=== PATIENT | male | born 1940 | race Caucasian/White ===

== ENCOUNTER 2017-01-20 07:31 | Outpatient (CLI) | payer MEDICARE, OTHER ==
--- NOTE | 2017-01-20 13:54 | NM ---
HIDA SCAN: Date: 01/20/17 INDICATION: Cholelithiasis with concern for possible cholecystitis. RADIOPHARMACEUTICAL: 4.9 mCi technetium-99m mebrofenin IV was utilized. FINDINGS: The gallbladder is demonstrated by the 10 minute clifford. There is bowel activity noted at the 30 minute time clifford. The gallbladder ejection fraction is 71% utilizing 8 oz of Boost. IMPRESSION: Normal HIDA scan. POS: [facility]
== END 2017-01-20 07:32 | disposition home or self-care (01) ==
LOC: NM 07:31
PROVIDERS: ATTEND Surgery
DX: K80.20 Calculus of gallbladder without cholecystitis without obstruction (principal)
CPT/HCPCS: 78227; A9537

== ENCOUNTER 2017-01-31 09:58 | Day surgery (SDC) | payer MEDICARE, OTHER ==
[2017-01-30 11:02] VITALS: BMI 29.2
[2017-01-31] MEDS ORDERED: CEFAZOLIN/Water 2 GM/20 ML SYRINGE ONE (10:47)
[2017-01-31 10:57] LABS: #Eosinphils 0.1 thou/uL (0.0-0.7); #Lymphocytes 0.7 thou/uL (1.20-3.40); #Monocytes 0.5 thou/uL (0.11-0.59); #Neutrophils 4.7 thou/uL (1.40-6.50); %Basophils 0.3 % (0.0-1.0); %Eosinophils 1.8 % (0.0-10.0); %Lymphocytes 11.1 % (21.0-51.0); %Monocytes 8.2 % (0.0-10.0); Hematocrit 30.7 % (42.0-52.0); Mean Platelet Volume 5.9 fL (7.4-10.4); Red Blood Cell (RBC) Count 3.46 mill/uL (4.70-6.10); White Blood Cell (WBC) Count 5.9 thou/uL (4.8-10.8)
[2017-01-31 11:15] LABS: ALT (SGPT) 15 U/L (8-55); AST (SGOT) 20 U/L (5-34); Alkaline Phosphatase 62 U/L (40-150); Anion Gap 12 mmol/L (10-20); BUN (Urea Nitrogen) 13 mg/dL (8.4-25.7); Bilirubin, Total 0.3 mg/dL (0.2-1.2); Calc. Creatinine Clearance 67 mL/min (70-130); Calcium 9.3 mg/dL (7.8-10.44); Carbon Dioxide 26 mmol/L (23-31); Chloride 105 mmol/L (98-107); Estimated GFR-MDRD 71; Globulin 2.9 g/dL (2.4-3.5); Protein, Total 6.8 g/dL (5.8-8.1)
[2017-01-31] MEDS ORDERED: Bupivacaine 0.25% HCL 30 ML VIAL ONE (11:42)
[2017-01-31] MEDS ORDERED: Lidocaine 2% w/Epinephrine 1:200K 20 ML VIAL ONE (11:42)
[2017-01-31] MEDS ORDERED: Fentanyl 250 MCG/5 ML VIAL ONE (11:43)
[2017-01-31] MEDS ORDERED: Glycopyrrolate 0.2 MG/ML 5 ML SYRINGE ONE (15:05)
[2017-01-31] MEDS ORDERED: Ondansetron HCl/PF 4 MG/2 ML Vial ONE (15:05)
[2017-01-31] MEDS ORDERED: Ketorolac Tromethamine 30 MG/ML VIAL ONE (15:05)
[2017-01-31] MEDS ORDERED: diphenhydrAMINE 50 MG/ML VIAL ONE (15:05)
[2017-01-31] MEDS ORDERED: Propofol 200 MG/20 ML VIAL ONE (15:05)
[2017-01-31] MEDS ORDERED: ePHEDrine/0.9% NaCl/PF SYRINGE 50 mg/10 ml ONE (15:05)
[2017-01-31] MEDS ORDERED: Lidocaine 1% PF 5 ML VIAL ONE (15:05)
[2017-01-31] MEDS ORDERED: PHENYLEPHRINE-NS 100 MCG/ML 10 ML SYRINGE ONE (15:05)
[2017-01-31] MEDS ORDERED: traMADol HCl 50 MG TAB ONE (16:48)
--- NOTE | 2017-02-05 13:42 | PDOC.OP ---
Operative Note - Operative Note Operative Note: PROCEDURE: Laparoscopic cholecystectomy and excision of large lipoma from the left shoulder SURGEON: Ellyn Soto M.D. DATE OF PROCEDURE: 01/31/2017 PREOPERATIVE DIAGNOSIS: Cholelithiasis and cholecystitis, large lipoma left shoulder POSTOPERATIVE DIAGNOSIS: Cholelithiasis and cholecystitis, large lipoma left shoulder HISTORY: Patient is a 76-year-old man with persistent episodes of epigastric discomfort and nausea. He has gallbladder sludge and has decided to proceed with laparoscopic cholecystectomy for symptomatic relief. He also has a large subcutaneous mass on his left shoulder and upper arm which is been present for many decades but recently has started to bother him more. On examination and ultrasound this has the appearance of a lipoma. FINDINGS: Multiple adhesions between the omentum and the anterior abdominal wall in the mid abdomen and bilateral lower quadrants with a clear space able to be developed in the right upper quadrant. Chronically distended gallbladder with some fibrosis of the neck consistent with chronic cholecystitis. Well- demarcated encapsulated lipoma left shoulder measuring 13 x 10 x 4 cm. PROCEDURE IN DETAIL: After informed consent was obtained and appropriate preoperative antibiotics were administered, the patient was taken to the operating room and placed in the supine position and general endotracheal anesthesia was administered. The stomach was decompressed with an OG tube and the abdomen was prepped and draped in standard sterile fashion. Local anesthesia was infused to the skin and subcutaneous tissues at the umbilical level. A transverse skin incision was made. The fascia was elevated and a Veress needle was placed into the abdominal cavity without difficulty. Opening pressure was less than 5 and carbon dioxide gas easily insufflated to an intra- abdominal pressure of 15, which the patient tolerated well. The Veress needle was withdrawn and a Percy port advanced under direct vision. There is no evidence of Veress needle or of trocar injury but the trocar was found to be under the omentum. This was well away from the transverse colon and any loops of intestine, and no adhesions were seen involving the bowel loops. Only omentum appeared to be adherent to the anterior abdominal wall.. The port was drawn back into the space between the omentum and anterior abdominal wall and a space was created by bluntly sweeping the scope within this area entering a clear portion and the right upper quadrant. The right subcostal trocar was placed under direct laparoscopic vision as was the right lateral trocar and the camera moved to the right upper quadrant location. The dissecting port was then used to mobilize the omentum off the anterior abdominal wall until the trocar at the umbilical location was completely free of adhesions. The omental adhesions were easily taken down through the avascular plane without any significant blood loss and there were no other involved structures such as small bowel or colon. The upper abdomen was relatively clear of adhesions but there were extensive adhesions to the mid abdomen and bilateral lower quadrants which were not taken down. The abdominal cavity was carefully examined. There was no evidence of Veress needle or of trocar injury. Local anesthesia was infused to the skin and subcutaneous tissues at the epigastric site and the remaining trocar placed under direct vision of the laparoscope. The fundus of the gallbladder was grasped and retracted superiorly. The infundibulum was grasped and retracted laterally. The serosa was stripped inferiorly at the level of the neck of the gallbladder exposing the cystic duct and artery which were traced clearly to their insertion in the gallbladder. Critical view of safety was obtained and the cystic duct and artery were clipped and divided between clips. The gallbladder was then dissected free of the gallbladder bed using hook electrocautery. Prior to complete removal of the gallbladder from the gallbladder bed, the area of the cystic duct and artery stumps was examined. The clips were in good position completely across these structures and there was no bleeding and no leakage of bile. The gallbladder was then placed into an EndoCatch bag and drawn out through the epigastric incision. The epigastric trocar was replaced and the operative site easily irrigated to clear. There was no significant bleeding or spillage of bile. The epigastric trocar was removed and the fascia closed under direct laparoscopic vision with a 0 Vicryl suture on a GraNee needle in a [id number] manner with excellent technical result. The right upper quadrant and right lateral abdominal trocars were removed and hemostasis verified. Carbon dioxide gas was allowed to desufflate through the umbilical trocar which was then removed. The skin incisions were closed with 4-0 subcuticular Monocryl sutures and Dermabond dressings were placed. Attention was then turned to excision of the left shoulder lipoma. The patient was repositioned in the right lateral decubitus position with appropriate padding of the extremities and the left shoulder and upper arm prepped and draped in standard sterile fashion. Local anesthesia was infused circumferentially for a field block and an elliptical incision made including most of the redundant skin overlying the mass. Dissection was carried down through the subcutaneous tissues until a well encapsulated fatty mass was encountered. This was dissected free circumferentially and excised along with the overlying skin. Hemostasis is obtained using Bovie electrocautery and the tissue defect examined. There was very little undermining due to the removal of the overlying redundant skin and it was felt that the wound could be closed primarily rather than placing a drain. The field block Vicryl suture was obtained and the subcutaneous tissues reapproximated with a running lock suture. The skin was then closed with a running subcuticular Monocryl suture with an excellent technical result. Dermabond dressings were applied and a pressure dressing applied to the left upper arm and shoulder. The patient was extubated and taken to the recovery room in good condition. There were no complications. ESTIMATED BLOOD LOSS: Minimal. SPECIMEN : Gallbladder and contents, left shoulder lipoma.
--- NOTE | 2017-02-15 13:29 | EKG ---
Test Reason : PREOP Blood Pressure : / mmHG Vent. Rate : 061 BPM Atrial Rate : 061 BPM P-R Int : 262 ms QRS Dur : 094 ms QT Int : 422 ms P-R-T Axes : 068 -18 059 degrees QTc Int : 424 ms Sinus rhythm with 1st degree A-V block Anteroseptal infarct (cited on or before 26-APR-2014) Abnormal ECG When compared with ECG of 26-APR-2014 11:23, Nonspecific T wave abnormality, improved in Lateral leads Confirmed by BETI LEWIS MD ([id number]) on 02/15/2017 1:29:39 PM Referred By: LUZ Confirmed By:BETI LEWIS MD
== END 2017-01-31 18:07 | disposition home or self-care (01) ==
LOC: SDC 09:58
PROVIDERS: ATTEND Surgery
PROC: 0FT44ZZ Resection of Gallbladder, Percutaneous Endoscopic Approach (ICD-10-PCS; principal; 2017-01-31)
PROC: 0JBF0ZZ Excision of Left Upper Arm Subcutaneous Tissue and Fascia, Open Approach (ICD-10-PCS; 2017-01-31)
DX: K81.1 Chronic cholecystitis (principal); D17.22 Benign lipomatous neoplasm of skin and subcutaneous tissue of left arm; E11.9 Type 2 diabetes mellitus without complications; Z79.84 Long term (current) use of oral hypoglycemic drugs; Z79.899 Other long term (current) drug therapy; Z90.49 Acquired absence of other specified parts of digestive tract; Z98.890 Other specified postprocedural states; Z86.73 Personal history of transient ischemic attack (TIA), and cerebral infarction without residual deficits; Z85.828 Personal history of other malignant neoplasm of skin; Z87.891 Personal history of nicotine dependence
CPT/HCPCS: 36415; 80053; 85025; 88304; 93005; 93010; J0131; J1200; J1885; J2001; J2405; J2704; J3010; S0020

== ENCOUNTER 2017-07-28 09:25 | Outpatient (CLI) | payer MEDICARE, OTHER ==
[2017-07-28] MEDS ORDERED: Sodium Chloride 0.9% (PF) 10 ML VIAL ONE (10:00)
[2017-07-28] MEDS ORDERED: EPINEPHrine 1 MG/ML AMP ONE (10:00)
[2017-07-28] MEDS ORDERED: Iopamidol 300 61% 50 ML VIAL FS ONE (10:00)
[2017-07-28] MEDS ORDERED: Lidocaine 1% PF 10 ML AMP ONE (10:00)
--- NOTE | 2017-07-28 12:49 | RAD ---
LEFT SHOULDER ARTHROGRAM: HISTORY: Pain. COMPARISON: None. TECHNIQUE/FINDINGS: The patient was brought to the fluoroscopy suite. All questions were answered. The shank piece tacker images demonstrate moderate degenerative disease of the acromioclavicular joint. Mild full ness of the left hilum. Informed consent was obtained. Timeout was performed. The left shoulder was prepped and draped in n ormal sterile fashion. Three mL of Lidocaine was instilled into the superficial and deep soft tissues. Using a 22-gauge spi nal needle, the shoulder joint was accessed. Eleven mL of contrast was instilled into the shoulder aracely int. The patient tolerated the procedure well without complication. IMPRESSION: 1. Technically successful fluoroscopic-guided left shoulder arthrogram for CT. 2. Abnormal fullness into the left hilum concerning for mass. CT chest recommended nonemergently. CODE T POS: [facility]
--- NOTE | 2017-07-28 13:49 | CT ---
CT LEFT SHOULDER WITH CONTRAST: Date: 07/28/17 HISTORY: Pain. Rotator cuff arthropathy. COMPARISON: None. TECHNIQUE: CT of the shoulder performed after intraarticular instillation of contrast into the glenohumeral join t. FINDINGS: There is an abnormal left hilar mass. There are very large right paratracheal and subcarinal lymph no joan. There are also prevascular abnormal lymph nodes with central necrosis. These are highly concerni ng for metastatic disease. There is a 1.0 cm left upper lobe nodule. Layering effusion. Bones: No fracture. No malalignment. No evidence for osseous metastatic disease. The rotator cuff is intact. No full thickness perforation. No significant muscular atrophy. No displa jarred labral tear. No displaced biceps tendon tear. IMPRESSION: 1. No evidence of full thickness perforation of rotator cuff. 2. Extensive adenopathy throughout the chest, as well as left upper lobe nodule and layering effusio n, highly suggestive of metastatic disease. Workup recommended. 3. No evidence for osseous metastatic disease. Dr. Valdes notified of findings at 1150 hours. CODE CR. POS: [facility]
== END 2017-07-28 09:26 | disposition home or self-care (01) ==
LOC: RAD 09:25
PROVIDERS: ATTEND Orthopaedic Surgery
DX: M75.102 Unspecified rotator cuff tear or rupture of left shoulder, not specified as traumatic (principal); R59.0 Localized enlarged lymph nodes; R91.1 Solitary pulmonary nodule
CPT/HCPCS: 23350; J0171

== ENCOUNTER 2017-08-07 09:30 | Outpatient (CLI) | payer MEDICARE, OTHER ==
--- NOTE | 2017-08-07 12:31 | PET ---
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 Exam requested for staging. Patient's last chemo/radiation therapy was in August 2014. TECHNIQUE: PET scanning with CT attenuation correction was performed from the vertex through the proximal thighs following the intravenous administration of 12.3 mCi F18-FDG in the right antecubital fossa. Imaging was performed after an uptake interval of 49 minutes. COMPARISON: PET CT dated 01/30/15. FINDINGS: George hypermetabolism is seen in the right lower neck (Level V) with a SUV of 3.5, mediastinum includ ing the right paratracheal (SUV 11), prevascular (SUV 10.7), right anterior superior mediastinum (SUV 12.6), AP window (SUV 12.2), and subcarinal lymph nodes (SUV 10.4). There is hypermetabolic activity in the right hilar lymph nodes with a SUV of 9 and in the left hilar/perihilar mass with a SUV of 10 , left infrahilar region with SUV of 8. There is a 3.5 cm right upper lobe anterior lung mass with a SUV of 14.4 and a 1.5 cm right lower lob e lung nodule with a SUV of 5.2. No hypermetabolic liver, adrenal, or skeletal lesions are seen. There is physiologic activity in the brain, GI and tracts. The CT scan used for attenuation correction demonstrates a left-sided pleural effusion. No right-side d pleural effusion or ascites seen. There is colonic diverticulosis. IMPRESSION: Malignancy/metastatic disease in the chest and right lower neck. POS: [facility]
== END 2017-08-07 09:31 | disposition home or self-care (01) ==
LOC: PET 09:30
PROVIDERS: ATTEND Internal Medicine Hematology & Oncology
DX: C76.0 Malignant neoplasm of head, face and neck (principal); R91.1 Solitary pulmonary nodule; C79.89 Secondary malignant neoplasm of other specified sites
CPT/HCPCS: 78815; A9552

== ENCOUNTER 2017-08-14 10:57 | Day surgery (SDC) | payer MEDICARE, OTHER ==
[2017-08-13 13:45] VITALS: BMI 26.7
[2017-08-14 12:39] LABS: #Eosinphils 0.1 thou/uL (0.0-0.7); #Lymphocytes 0.5 thou/uL (1.20-3.40); #Monocytes 0.5 thou/uL (0.11-0.59); #Neutrophils 4.9 thou/uL (1.40-6.50); %Basophils 0.3 % (0.0-1.0); %Eosinophils 0.9 % (0.0-10.0); %Lymphocytes 8.8 % (21.0-51.0); %Monocytes 7.7 % (0.0-10.0); %Neutrophils 82.4 % (42.0-75.0); Hemoglobin 11.7 g/dL (14.0-18.0); Mean Corpuscular HGB CONC 32.9 g/dL (32.0-36.0); Mean Corpuscular Hemoglobin 28.7 pg (27.0-31.0); Mean Corpuscular Volume 87.4 fL (78.0-98.0); Mean Platelet Volume 6.2 fL (7.4-10.4); Platelet Count 300 thou/uL (130-400); Red Blood Cell (RBC) Count 4.07 mill/uL (4.70-6.10); White Blood Cell (WBC) Count 5.9 thou/uL (4.8-10.8)
[2017-08-14] MEDS ORDERED: CEFAZOLIN/Water 2 GM/20 ML SYRINGE ONE (12:52)
[2017-08-14 12:55] LABS: Anion Gap 15 mmol/L (10-20); BUN (Urea Nitrogen) 20 mg/dL (8.4-25.7); Calc. Creatinine Clearance 56 mL/min (70-130); Calcium 9.9 mg/dL (7.8-10.44); Carbon Dioxide 26 mmol/L (23-31); Chloride 103 mmol/L (98-107); Estimated GFR-MDRD 64; Glucose 88 mg/dL (83-110); Potassium 4.5 mmol/L (3.5-5.1); Sodium 139 mmol/L (136-145)
[2017-08-14] MEDS ORDERED: Glycopyrrolate 0.2 MG/ML 5 ML SYRINGE ONE (14:56)
[2017-08-14] MEDS ORDERED: PHENYLEPHRINE-NS 100 MCG/ML 10 ML SYRINGE ONE (14:56)
[2017-08-14] MEDS ORDERED: ePHEDrine/0.9% NaCl/PF SYRINGE 50 mg/10 ml ONE (14:56)
[2017-08-14] MEDS ORDERED: PROPOFOL 200 MG/20 ML VIAL ONE (14:56)
[2017-08-14] MEDS ORDERED: Lidocaine 1% PF 5 ML VIAL ONE (14:56)
[2017-08-14] MEDS ORDERED: Ondansetron HCl/PF 4 MG/2 ML Vial ONE (14:56)
[2017-08-14] MEDS ORDERED: Fentanyl 100 MCG/2 ML VIAL ONE (15:29)
[2017-08-14] MEDS ORDERED: Bupivacaine HCl 0.5%/Epinephrine 1:200,000/PF 30 ml Vial ONE (16:07)
--- NOTE | 2017-08-15 11:17 | OP ---
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 POSTOPERATIVE DIAGNOSES: Bilateral lung masses with extensive mediastinal adenopathy status post rad iation and chemotherapy treatment for squamous cell carcinoma of the neck. PROCEDURE: Cervical mediastinoscopy. SPECIMEN: Biopsy specimen from the mediastinum mass. DESCRIPTION OF PROCEDURE: After consent was obtained, the patient was brought to the operating room and placed in the supine position on the operating room table. Appropriate anesthetic monitor was pl aced and general endotracheal anesthesia induced. Skin incision was made two fingerbreadths above th e sternal notch. Dissection through the platysma down between the strap muscles obtained with electr ocautery. Anterior tracheal fascia was incised. Blunt dissection was used to enter the mediastinum. Just below the clavicular heads, the mediastinum was very difficult to dissect. There was extensiv e scarring. Mediastinoscope was inserted and using both blunt and finger dissection, we were able to eventually get the mediastinoscope down to where we could see the mass in question. There were area s that were too hard to allow the biopsy forceps to biopsy of the mass. Eventually we were able to f ind an area that allowed the biopsy forceps and would allow for taking a small specimen. This was ex amined under frozen section and revealed small blue cells consistent with a carcinoma. Further studi es will be performed. Hemostasis was ensured. The wound was then closed in layers and Dermabond brittany lied to the skin. The patient tolerated the procedure well and was transferred to the recovery area and home later today.
== END 2017-08-14 18:28 | disposition home or self-care (01) ==
LOC: SDC 10:57
PROVIDERS: ATTEND Thoracic Surgery (Cardiothoracic Vascular Surgery)
PROC: 0WBC4ZX Excision of Mediastinum, Percutaneous Endoscopic Approach, Diagnostic (ICD-10-PCS; principal; 2017-08-14)
DX: C78.1 Secondary malignant neoplasm of mediastinum (principal); I10 Essential (primary) hypertension; E11.9 Type 2 diabetes mellitus without complications; I25.10 Atherosclerotic heart disease of native coronary artery without angina pectoris; E78.2 Mixed hyperlipidemia; E03.9 Hypothyroidism, unspecified; Z85.89 Personal history of malignant neoplasm of other organs and systems; Z87.891 Personal history of nicotine dependence; Z79.82 Long term (current) use of aspirin; Z79.84 Long term (current) use of oral hypoglycemic drugs; Z79.899 Other long term (current) drug therapy
CPT/HCPCS: 36415; 80048; 85025; 86850; 86900; 86901; 88305; 88307; 88331; 88341; 88342; 93005; 93010; J0670; J2001; J2405; J2704; J3010

== ENCOUNTER 2017-09-06 16:37 | Inpatient (IN) | payer MEDICARE, OTHER ==
[~2017-09-06 16:37] MED LIST: ISOVUE-370 76%-LOCM 1 ML ONE
[2017-09-06 17:21] LABS: Hemoglobin 9.9 g/dL (14.0-18.0); Mean Corpuscular HGB CONC 34.7 g/dL (32.0-36.0); Mean Corpuscular Hemoglobin 30.6 pg (27.0-31.0); Mean Corpuscular Volume 88.4 fL (78.0-98.0); Mean Platelet Volume 5.8 fL (7.4-10.4); Platelet Count 249 thou/uL (130-400); RBC Distribution Width 14.9 % (11.5-14.5); Red Blood Cell (RBC) Count 3.24 mill/uL (4.70-6.10); White Blood Cell (WBC) Count 12.3 thou/uL (4.8-10.8)
--- NOTE | 2017-09-06 17:35 | RAD ---
PORTABLE CHEST: 09/06/17 HISTORY: Chest pain. COMPARISON: 07/21/14 FINDINGS/IMPRESSION: Cardiomegaly with postop sternotomy change. Bilateral pleural effusions. Bilateral perihilar infiltra rosey. Left basilar atelectasis and/or consolidation. POS: [facility]
[2017-09-06 17:39] LABS: ALT (SGPT) 9 U/L (8-55); AST (SGOT) 18 U/L (5-34); Albumin 3.7 g/dL (3.4-4.8); Alkaline Phosphatase 78 U/L (40-150); Anion Gap 14 mmol/L (10-20); BUN (Urea Nitrogen) 18 mg/dL (8.4-25.7); Bilirubin, Total 0.3 mg/dL (0.2-1.2); CK (CPK) 46 U/L (30-200); Calc. Creatinine Clearance 0 mL/min (70-130); Calcium 9.2 mg/dL (7.8-10.44); Carbon Dioxide 26 mmol/L (23-31); Chloride 101 mmol/L (98-107); Estimated GFR-MDRD 89; Globulin 3.2 g/dL (2.4-3.5); Glucose 161 mg/dL (83-110); Potassium 5.1 mmol/L (3.5-5.1); Protein, Total 6.9 g/dL (5.8-8.1); Sodium 136 mmol/L (136-145)
[2017-09-06 17:42] LABS: CKMB 1.3 ng/mL (0-6.6); Troponin I Less than 0.010 ng/mL (< 0.028)
[2017-09-06 17:43] LABS: Band 20 % (5-11); Lymphocytes 6 % (21-51); MDiff Complete? YES; Metamyelocyte 1 % (0-0); Monocytes 2 % (0-10); Neutrophil 69 % (42-75); Reactive Lymphocytes 2 % (0-10)
[2017-09-06] MEDS ORDERED: Cefepime 1 GM VIAL ONE (18:00)
[2017-09-06] MEDS ORDERED: methylPREDNISolone Sod Succ/PF 125 MG/2 ML VIAL ONE (18:05)
[2017-09-06] MEDS ORDERED: Albuterol Sulfate 2.5 mg/3 ml Neb ONE ×4 (18:21→18:51)
[2017-09-06] MEDS ORDERED: Albuterol Sulfate 2.5 mg/0.5 ml Neb ONE (18:22)
[2017-09-06] MEDS ORDERED: Ipratropium Bromide 2.5 ml Neb ONE (18:22)
[2017-09-06] MEDS ORDERED: Vancomycin HCl 1 GM in Premix Bag 1 BAG IVPB ONE (18:30)
--- NOTE | 2017-09-06 18:45 | CT ---
CT ANGIO OF CHEST WITH CONTRAST: 09/06/17 Multiple axial tomograms obtained through the chest with IV enhancement. Angio protocol was followed. Multiplanar reconstruction with 3D postprocessing obtained. INDICATIONS: Chest pain and dyspnea. Pulmonary arteries show adequate opacification. There is no evidence of pulmonary embolus. There are moderate sized bilateral pleural effusions. There is dense atelectasis of the left upper lo be. There appears to be sharp occlusion of left upper lobe bronchus. This bronchus occludes as it ent ers this densely atelectatic left upper lobe. There are several nodular mass densities along the medi astinum and left upper lung which measures 2 to 3 cm. These extend into the eileen and there is hilar l halina mass or adenopathy which is difficult to define because of the adjacently densely atelectatic lef t upper lobe. There is significant mediastinal adenopathy with enlarged lymph nodes seen in the parat winston and carinal regions. There is right hilar adenopathy. There is a 2 cm pleural based mass ante rior right upper lung and there is a 2.4 cm soft tissue mass along the mediastinum in the right upper lobe. There are moderate sized bilateral pleural effusions. There is right perihilar infiltrate or e lee. Images through upper abdomen unremarkable. IMPRESSION: 1. No evidence of pulmonary embolus. 2. Large bilateral pleural effusions. 3. Left hilar mass with obstruction of a left upper lobe bronchus and densely atelectatic left u pper lung. 4. Diffuse mediastinal and hilar adenopathy. Pleural based mass anterior right upper lung and a mass along the medial right upper lung adjacent to the mediastinum. Findings would indicate neoplasm. I cannot exclude secondary inflammatory infiltrates. POS: [facility]
[2017-09-06 19:52] LABS: CO2 Tension 75.7 mmHg (35.0-45.0); O2 Tension (PaO2) 82.7 mmHg (> 70.0); pH, Arterial 7.23 (7.35-7.45)
[2017-09-06 19:53] LABS: Actual Bicarbonate (HCO3a) 30.6 mEq/L (22-28); Base Excess (BEa) 2.1 mEq/L (-2.0 to +3.0); Calcium, Ionized 1.2 mmol/L (1.12-1.30); Hemoglobin (Hb) 8.5 g/dL (14.0-18.0)
[2017-09-06 19:54] LABS: ALV-art Gradient 179.175 (0-20); Analyzer IN Cardio ER; Puncture Site LBA
[2017-09-06 20:02] LABS: Bilirubin Negative (Negative); Blood, Urine Negative (Negative); Clarity CLEAR (Clear); Glucose, Urine (Dipstick) Negative (Negative); Leukocyte Negative (Negative); Nitrite Negative (Negative); Protein, Urine (Dipstick) Trace mg/dL (Neg-Trace); Specific Gravity, Urine 1.039 (1.002-1.036); Urobilinogen 0.2 mg/dL (0.2-1.0)
[2017-09-06] MEDS ORDERED: Ondansetron HCl/PF 4 MG/2 ML Vial IVP PRN (20:44)
[2017-09-06] MEDS ORDERED: Acetaminophen 325 MG TAB PO PRN (20:44)
[2017-09-06] MEDS ORDERED: VANCOMYCIN IVPB PRN (21:01)
[2017-09-06] MEDS ORDERED: Dextrose 5% in Water 1,000 ML IV PRN (21:21)
[2017-09-06] MEDS ORDERED: HumaLOG 300 UNITS/3 ML VIAL SC PRN (21:21)
[2017-09-06] MEDS ORDERED: Dextrose 50% Abboject 50 ML SYRINGE SLOW IVP PRN (21:21)
--- NOTE | 2017-09-06 23:42 | HP ---
CODE STATUS: FULL CODE TIME OF EVALUATION: 8:30 p.m. PRIMARY CARE PHYSICIAN: Patient goes to see Dr. Brian Kingsley. CHIEF COMPLAINT: Worsening shortness of breath. HISTORY OF PRESENT ILLNESS: This is a 77-year-old male with a past medical history of recent diagnos is of squamous cell carcinoma, patient had already treatment with chemo. The patient has been follow ed by Dr. Gandhi, patient has also been offered immunotherapy that was supposed to be started next M onday. As per Dr. Gandhi's recommendations, patient has come to the ER since he has got severe shor tness of breath that has been gradually worsening, saturation was found to be in the 70%, patient has a nonrebreather mask with no improvement and was finally placed on BiPAP. Symptoms have been likely triggered by stage 4 squamous cell carcinoma, CT of the chest show bilateral pleural effusion and ob struction of the left upper lobe due to mass compression, infection cannot be ruled out by the radiol ogist. Symptoms are severe. Only alleviating factors are the medical treatment; however, last ABG o n BiPAP was 7.23 with pCO2 of 75 and oxygen of 80-100%. Discussion with family members and the patie nt regarding goals of care also with Dr. Gandhi. As of now, they are willing to go for a trial of i ntubation and to see if current condition can be reversible and if that is the case and the patient i mproved, patient might be then go for immunotherapy that might bring some improvement to the patient' s cancer. If the patient does not improve after intubation then the family will follow patient which is the reason not to prolong life with extreme measures. As an outpatient, patient also follows lorenza Rodney that has been consulted to help us with outpatient. REVIEW OF SYSTEMS: Unable to obtain as the patient is confused, on BiPAP, respiratory distress, alth ough he can answer simple questions. did not report any fever. Other symptoms reported as the one mentioned in the HPI. PAST MEDICAL HISTORY: Patient has a history of coronary artery disease, status post multiple stents, skin cancer, throat cancer, CVA in 2012, radiation and chemo in the past, squamous cell carcinoma castaneda s been diagnosed in 07/2017. PAST SURGICAL HISTORY: Appendectomy, cholecystectomy, CABG x3, cardiac stent x1, lipoma removal. PSYCHIATRIC HISTORY: No previous psychiatric history. SOCIAL HISTORY: No alcohol, no drugs. Former smoker. ALLERGIES: No known drug allergies reported. MEDICATIONS: Metformin, pravastatin, tamsulosin, hydralazine, losartan, amlodipine, metoprolol, levo thyroxine, pantoprazole, aspirin, tizanidine, trazodone. PHYSICAL EXAMINATION: VITAL SIGNS: On presentation, blood pressure 139/73, heart rate 125, respiratory rate was 27, temper ature 98.6, pain 6/10, oxygen saturation 96% on rebreather mask and on BiPAP, patient is 100% and sat urations are 91%. GENERAL APPEARANCE: Alert, oriented, in distress due to respiratory distress, can answer simple ques tions. HEENT: Normal conjunctivae. Moist oral mucosa, anicteric. NECK: No JVD. RESPIRATORY: Bilateral air entry is decreased. Bilateral rales, scattered wheezing. Symmetrical ex pansion. CARDIOVASCULAR: Patient is tachycardic, regular rate and rhythm. Systolic murmur aortic valve. No gallop. Bilateral leg edema. ABDOMEN: Soft, normal bowel sounds. MUSCULOSKELETAL: Baseline range of motion and strength. No tenderness. SKIN: Warm and intact. No pallor, no rash, no redness. NEUROLOGIC: Baseline sensorium. No evidence of any new focal weakness. Baseline speech. Cranial n erve seems to be intact. PSYCHIATRIC: Patient is anxious due to respiratory distress. LABORATORY DATA: EKG was reviewed. The patient has sinus tachycardia with first degree AV block, an teroseptal infarct, age undetermined. ST-T wave abnormalities, mostly in V5, V6, V1, aVL for lateral garibay. Chest x-ray was reviewed, was reported cardiomegaly with post-sternotomy change, bilateral p leural effusion, bilateral perihilar infiltrates, left basilar atelectasis and/or consolidation. CT angio was done. There is no evidence of pulmonary embolism, large bilateral pleural effusion, left h ilar mass with obstruction of the left upper lobe bronchi and densely atelectatic left upper lung, di ffuse mediastinal hilar adenopathy, pleural based mass, anterior right upper lung and mass along with medial right open lung adjacent to the mediastinum, findings could indicate neoplasm. I cannot excl ude secondary inflammatory changes. LABORATORY DATA: Reviewed. Patient has white count 12.3, hemoglobin 9.9, MCV 88, platelet count 249 . Blood gas pH 7.23, pCO2 of 75, oxygen 82, BiPAP 15/5, oxygen 50% mechanical rate 10. Chemistry: Sodium 136, potassium 5.1, chloride 101, carbon dioxide 26, anion gap 14, BUN 18, creatinine 0.84, GF R 89, glucose 161. Lactic acid 0.8, calcium 9.2, total bilirubin 0.38. Rest of LFTs are negative. UA was negative. CRITICAL CARE TIME: I spent more than 35 minutes in bedside assessment, family meeting, reviewing el aboration of records, call to consultants, coordination of care. ASSESSMENT AND PLAN: Patient will be placed in the hospital following medical condition. 1. Acute hypoxic and hypercapnic respiratory failure, likely secondary to underlying stage 4 squamou s cell carcinoma of the lung, patient has complication including bilateral pleural effusions and also post-obstructive atelectasis versus infiltrate, patient is on BiPAP, tolerating p.o. now, but mentat ion is not optimal, patient might deteriorate. I have discussed with the patient and family members in meeting and also with patient's primary oncologist and there is agreement at this point to do a tr ial of intubation since the patient had qualified for immunotherapy. If patient does not improve or unable to recover from invasive treatment then family most likely will decide on with healthcare that was as per patient's request and family discussion. 2. Possible left upper lobe atelectasis versus postobstructive infiltrates, given severity of illnes s. We will treat with antibiotics, we will follow cultures, we will adjust treatment depending on neisha gamez's clinical course. Dr. Rodney is the patient's primary forms examiner, has been consulted to see him in the morning to assist us with our patient probably thoracentesis with therapeutic indication could help with the respiratory status, we will defer to Dr. Rodney any other further recommendations including bronchoscopy for postobstructive disease. 3. Possible sepsis. Patient has elevated white count, tachycardia, respiratory failure, broad spect rum antibiotics, cultures, follow results and adjust treatment as needed. 4. Chronic normocytic anemia, hemoglobin is mildly decreased, likely due to underlying cancer, we wi ll defer to Hematology any further treatment. 5. Stage 4 squamous cell carcinoma of the lung, this is likely the main problem ____ and complicatio ns, have this ____ Dr. Gandhi. We have talked about staging covering the treatment choices and prog nosis. She will follow and help us with outpatient, we will follow recommendations. Patient if impr angelica might be a candidate for immunotherapy. 6. Deep venous thrombosis prophylaxis. 7. History of coronary artery disease. This problem seems to be stable at this point, reconcile osmany e medications. 8. Uncontrolled high blood pressure, I would not treat aggressively given the possible underlying se psis, reconcile home meds depending on patient's clinical response. 9. Controlled diabetes. We will place the patient on sliding scale.
[2017-09-06] MEDS ORDERED: ALPRAZolam 0.25 MG TAB PO SCH (23:45)
[2017-09-07 00:45] VITALS: BMI 26.7
[2017-09-07 04:12] LABS: #Eosinphils 0.2 thou/uL (0.0-0.7); #Lymphocytes 0.3 thou/uL (1.20-3.40); #Monocytes 0.1 thou/uL (0.11-0.59); #Neutrophils 13.2 thou/uL (1.40-6.50); %Basophils 0.2 % (0.0-1.0); %Eosinophils 1.2 % (0.0-10.0); %Lymphocytes 1.8 % (21.0-51.0); %Neutrophils 95.8 % (42.0-75.0); Hemoglobin 10.2 g/dL (14.0-18.0); Mean Corpuscular HGB CONC 32.5 g/dL (32.0-36.0); Mean Corpuscular Hemoglobin 29.5 pg (27.0-31.0); Mean Corpuscular Volume 90.9 fL (78.0-98.0); Mean Platelet Volume 6.3 fL (7.4-10.4); Platelet Count 272 thou/uL (130-400); RBC Distribution Width 15.3 % (11.5-14.5); Red Blood Cell (RBC) Count 3.47 mill/uL (4.70-6.10); White Blood Cell (WBC) Count 13.8 thou/uL (4.8-10.8)
[2017-09-07 04:20] LABS: Anion Gap 15 mmol/L (10-20); BUN (Urea Nitrogen) 20 mg/dL (8.4-25.7); Calc. Creatinine Clearance 62 mL/min (70-130); Calcium 9.2 mg/dL (7.8-10.44); Carbon Dioxide 24 mmol/L (23-31); Chloride 103 mmol/L (98-107); Estimated GFR-MDRD 73; Glucose 180 mg/dL (83-110); Potassium 5.9 mmol/L (3.5-5.1); Sodium 136 mmol/L (136-145)
[2017-09-07] MEDS: Cefepime 1 GM in Sodium Chloride 0.9% 100 ML IVPB SCH ×2 (06:04→18:51)
[2017-09-07] MEDS: Enoxaparin Sodium 40 MG/0.4 ML SYRINGE SC SCH (08:45)
--- NOTE | 2017-09-07 11:13 | CON ---
DATE OF CONSULTATION: 09/07/2017. HISTORY OF PRESENT ILLNESS: Mr. 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 He has had rapid progression of disease with only diagnosed 1 month ago. He has had increasing shortness of breath as well as chest pain over the last few days and it got acutel y worse on the day of admission. A myocardial infarction has been ruled out, but on admission his CA T scan showed progression of the tumor with a pleural effusion. The patient is complaining of increa sing back pain as well as buttocks pain and some intermittent chest pain that seems pleuritic. He castaneda s lost weight and is having a poor appetite. He has been getting fluid resuscitation in my office ov er the last few days, but admits he has not been drinking any water. On admission, he was placed on BiPAP, although he is now oxygenating and respirating better and is off BiPAP on nasal cannula oxygen , but he is somewhat uncomfortable and still remains short of breath. He denies cough that is produc tive at this time. PAST MEDICAL HISTORY: 1. 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 2. Recent diagnosis of squamous cell carcinoma of the lung, rapidly progressing in the last 3-4 week s. 3. Coronary artery disease, status post multiple stent placements. 4. History of cerebrovascular accident in 2012. CURRENT MEDICATIONS: 1. Tylenol p.r.n. 2. DuoNeb p.r.n. 3. Cefepime 1 gram IV q.12 hours. 4. Lovenox 40 mg subcu daily. 5. Glucagon p.r.n. 6. Insulin p.r.n. 7. Zofran 4 mg IV q.6 hours p.r.n. 8. Vancomycin. ALLERGIES: No known drug allergies. SOCIAL HISTORY: He lives in the [place] area with his who is quite supportive. His daughter i s also here. He has a history of smoking, but has not smoked recently. He also has a history of alc ohol use, but does not drink currently. REVIEW OF SYSTEMS: Otherwise, 10-point review of systems is negative. FAMILY HISTORY: Noncontributory. PHYSICAL EXAMINATION: VITAL SIGNS: Temperature 96.5, pulse 118, respirations 16-20, O2 saturation 97% on BiPAP, blood pres sure 105/67. GENERAL: He appears older than his stated age, is in mild respiratory distress, but is pleasant. HEENT: Extraocular muscles are intact. Pupils are equal, reactive to light. He has no oral cavity lesions. NECK: Supple, without lymphadenopathy. CARDIOVASCULAR: Decreased breath sounds bilaterally. ABDOMEN: Hypoactive bowel sounds. Soft, nontender, nondistended. EXTREMITIES: No edema. He does have some ecchymoses from skin fragility on his upper extremities. No clubbing. LABORATORY DATA AND IMAGING: White blood cell count 13.8, hemoglobin 10.2, platelets 272. Sodium 13 6, potassium 5.9, chloride 103, CO2 of 24, BUN 20, creatinine 1.0, glucose 180, calcium 9.2. CT scan of the chest done in the emergency room shows no evidence of pulmonary embolus. He does have large bilateral pleural effusions, a left hilar mass is now causing obstruction of the left upper lobe with a densely atelectatic left upper lobe. He has diffuse mediastinal and hilar lymphadenopathy. ASSESSMENT: Mr. Mae is a 77-year-old male with: 1. Newly diagnosed squamous cell carcinoma of the lung versus metastatic laryngeal squamous cell car cinoma. 2. Progressive shortness of breath as well as progressive bilateral pleural effusions. 3. Pleurisy and increasing back pain. 4. Poor performance status. PLAN: 1. We again discussed the diagnosis and prognosis. We are hoping to start him on immunotherapy next week, but he has had quite a rapid decline. He is quite adamant that he does not want full resuscit ation and mostly wants to be discharged. However, he understands that without hospice, it would be d ifficult for him to go home and he is willing to stay to see if we can improve his symptoms at this t cynthia. I have recommended a thoracentesis and we have discussed this with Pulmonary. 2. We discussed resuscitation status and he wants to be a DNR, we will implement this per his wishes . I discussed this with the family and they are all on board with his decision. 3. Ultimately, I think his prognosis is poor and we will consult palliative care to help with his di scharge status. Thank you very much for this consult. We will continue to follow with you.
--- NOTE | 2017-09-07 13:29 | PRG ---
DATE OF SERVICE: 09/07/2017 SUBJECTIVE: The patient is seen and examined at bedside with family. He is finally feeling somewhat better and his respirations slowing down. He received morphine IV. OBJECTIVE: VITAL SIGNS: Blood pressure is 133/84, pulse is 104, respiratory rate is 24, temperature is 98.1 and O2 saturation is 100% on 5 liters by nasal cannula. GENERAL: He is in this sitting up position with leaning forward, which helps him to breathe and rela x. His sclerae is nonicteric. HEENT: Oral mucosa is somewhat dry. LUNGS: Breath sounds are significantly diminished at both bases with few crackles bilaterally. HEART: S1, S2, tachycardic, no S3, no S4. ABDOMEN: Soft, nontender. NEUROLOGIC: He is able to answer my questions. He is able to move his all 4 extremities. LABORATORY DATA: Showed white count of 13.8, hemoglobin 10.2, hematocrit 31.5, platelet count is 272 ,000. Sodium of 136, potassium 5.9, chloride 103, BUN 20, creatinine 1.0. Glucose 161 and 180. Shanu robiology: No growth at 12 hours in urine culture and two blood cultures are negative so far. IMPRESSION: 1. Squamous cell carcinoma of the lung versus metastatic laryngeal squamous cell carcinoma. 2. Respiratory failure secondary to #1 and bilateral pleural effusions. 3. Possible sepsis with tachycardia and respiratory failure. 4. Chronic normocytic anemia. PLAN: Do paracentesis today by Dr. Caraballo, senior principal, who is on-call, Dr. Gandhi, patient's on cologist talked to him and he will do at bedside thoracocentesis, will continue cefepime and vancomyc in for now for possible infectious process in his lungs. He will be moved to the oncology unit after he has thoracocentesis. We will continue his sliding scale with insulin.
[2017-09-07] MEDS ORDERED: Dextrose 5 %-0.45 % NaCl 1,000 ML IV SCH (14:45)
[2017-09-07] MEDS ORDERED: Lidocaine 1% (PF) 30 ML VIAL ONE ×2 (15:38→15:39)
[2017-09-07] MEDS: Dextrose 5 %-0.45 % NaCl 1,000 ML IV SCH (16:19)
[2017-09-07 16:50] LABS: BF Color Yellow; Body Fluid Source THORACENTESIS FLD; Tube # EDTA
[2017-09-07 17:01] LABS: Clarity Hazy (Clear); WBC/NonHematic-Auto 916 /cumm
[2017-09-07 17:03] LABS: BF RBC Count - Manual 2015 /cumm
[2017-09-07 17:10] LABS: Pleural Fluid, Protein 2.5 g/dL
--- NOTE | 2017-09-07 17:22 | CON ---
DATE OF CONSULTATION: 09/07/2017 SERVICE: Pulmonary Medicine. REASON FOR CONSULTATION: Respiratory failure. HISTORY OF PRESENT ILLNESS: The patient is a 77-year-old white male with past medical history signif icant for widely metastatic squamous cell carcinoma of the lung. He has been on chemotherapy for abo ut a week. He has had progressive deterioration in function. He denies any current fevers or chills . He came to the hospital with shortness of breath, essentially failure to thrive. He was found to be severely hypoxemic. He was placed on BiPAP and tucked into the ICU. On the CT scan, pleural effu sions were identified. I was requested to come by and do a therapeutic thoracentesis. PAST MEDICAL HISTORY: 1. Squamous cell carcinoma of the lung, widely metastatic. 2. Coronary artery disease. 3. Hypertension. 4. History of CVA in 2012. 5. History of throat cancer. 6. Skin cancers. PAST SURGICAL HISTORY: 1. Cholecystectomy. 2. Appendectomy. 3. Coronary artery bypass graft x3 vessels. 4. Percutaneous coronary intervention x1. 5. Excision of lipoma. SOCIAL HISTORY: Negative for alcohol, tobacco or illicit drug use. He has a greater than 40-pack-ye ar history of smoking, but has quit. He has no exposure to chemicals, dust asbestosis or tuberculous . FAMILY HISTORY: Noncontributory. ALLERGIES: No known drug allergies. MEDICATIONS: List of his inpatient medications were reviewed. No specific updates were made at this time. REVIEW OF SYSTEMS: General, head, ears, eyes, nose, throat, cardiovascular, respiratory, GI, , mus culoskeletal, neurologic and skin is negative except as mentioned in the HPI. PHYSICAL EXAMINATION: VITAL SIGNS: Afebrile, pulse 104, blood pressure 133/84, respirations 24, saturation 97% on 5 liters nasal cannula. GENERAL: The patient is awake and alert. He is in mild respiratory distress. HEENT: Normocephalic, atraumatic. Sclerae are white, conjunctivae pink. Oral mucosa is moist witho ut lesions. LUNGS: Decent air entry. Crackles are present. There is decreased air entry at the bibasilar regio n with no prolonged expiratory phase. There is no wheezing. HEART: Normal rate, regular. ABDOMEN: Soft, nontender, nondistended. Bowel sounds are positive. MUSCULOSKELETAL: No cyanosis or clubbing. There is no pitting in the bilateral lower extremities. He has skin tenting throughout. GENITOURINARY: No Rob catheter. NEUROLOGIC: Grossly nonfocal. LABORATORY DATA: WBC 13.8, hemoglobin 10.2, platelets 272,000. Neutrophil count is 95% and on prese ntation, his band count was 20%. A pH 7.23, pCO2 75, pO2 83. Creatinine 1.0. Basic metabolic profi le is otherwise unremarkable. Liver function studies are unremarkable. Troponin is negative x1. Ur inalysis is negative. Blood cultures x2 and urine culture remain negative. IMAGING DATA: CT of the chest demonstrates moderate bilateral pleural effusions. There is a left hi lar mass causing complete obstruction of the left upper lobe. There is no air bronchograms that are identified suggesting that there could be a postobstructive process because it is taking up more real istic than I would expect. He also has some atelectasis and consolidative changes in the left lower lobe with atelectasis next the effusion. There is also some atelectasis with minimal air bronchogram s present in the right lower lobe. There is a pleural effusion that is adjacent to this. ASSESSMENT: 1. Acute on chronic hypoxic and hypercapnic respiratory failure. 2. Healthcare-associated pneumonia, likely postobstructive in nature in the left upper lobe. 3. Pleural effusions, bilateral. 4. Squamous cell carcinoma of the lung, widely metastatic. DISCUSSION AND PLAN: We will perform a thoracentesis on the right. There is likely a touch more flu id on the left. That being said, because of the left upper lobe lesion and complete atelectasis of t hat region, my suspicion is that part of the lung will not reexpand. I do believe the patient has a postobstructive pneumonia process. Antibiotics directed at healthcare acquired organisms are indicat ed. After we do the thoracentesis if the patient is clinically stable, he can be transitioned to the floor. Pulmonary or Critical Care will continue to follow along, but Dr. Rodney will assume care in the morning and he has an established relationship with Mr. Mae.
[2017-09-07 17:28] LABS: BF Segmented Neutrophils 33 %; Cell Count Non Hematic 38 %; Lymphocytes 29 %
[2017-09-07] MEDS: Morphine 4 MG/ML VIAL SLOW IVP PRN (18:51)
[2017-09-07] MEDS ORDERED: Vancomycin HCl 1.5 GM in Sodium Chloride 0.9% 250 ML 300 ML IVPB SCH (20:00)
[2017-09-08] MEDS: Morphine 4 MG/ML VIAL SLOW IVP PRN ×3 (01:16→12:37)
--- NOTE | 2017-09-08 01:46 | OP ---
DATE OF PROCEDURE: 09/07/2017 SERVICE: Pulmonary Medicine. PROCEDURE PERFORMED: Right-sided pleural drainage with catheter insertion under ultrasound guidance. CONSENT: The risks and benefits of the procedure were explained to the patient. All questions were answered and alternative options explained. STAFF PHYSICIAN: Iban Caraballo M.D. MEDICATIONS USED: Lidocaine 1% without epinephrine, total quantity 9 mL. PREPROCEDURE DIAGNOSES: 1. Acute hypoxic respiratory failure. 2. Pleural effusion. POSTPROCEDURE DIAGNOSES: 1. Acute hypoxic respiratory failure. 2. Pleural effusion. DESCRIPTION OF PROCEDURE: A timeout was performed by the procedure team and patient. The patient wa s positively identified using name and date of . The procedure site was marked. Vital sign mon itoring was accomplished by noninvasive hemodynamic monitoring and pulse oximetry. In the seated position, the right posterior hemithorax was examined using ultrasound probe. The diap hragm and pleural fluid were easily identified. The skin was prepped and draped in usual sterile fas hion and anesthetized with 1% lidocaine without epinephrine. A finder needle was inserted in the ple ural space with return of cloudy yellow fluid. A pleural drainage catheter was then inserted in the same location and total quantity of 1300 mL of the same fluid was withdrawn by syringe pump technique . A sample was sent for analysis. Evacuation of fluid was terminated because the fluid stopped comi ng. At the end of the procedure, estimated pleural pressures, measured by manometry, was -18 cm of w ater pressure. The intact catheter was withdrawn and exhalation. A sterile dressing was applied. T he patient had stable vitals throughout the entire procedure. ESTIMATED BLOOD LOSS: Less than 2 mL. COMPLICATIONS: None.
[2017-09-08] MEDS: Cefepime 1 GM in Sodium Chloride 0.9% 100 ML IVPB SCH (05:56)
[2017-09-08] MEDS: Enoxaparin Sodium 40 MG/0.4 ML SYRINGE SC SCH (07:38)
--- NOTE | 2017-09-08 10:30 | RAD ---
PORTABLE AP CHEST XRAY: DATE: 09/08/17. HISTORY: Post right thoracotomy. COMPARISON: 09/06/17. FINDINGS: There are pleural and parenchymal changes at the right lung base probably related to right pleural ef fusion and atelectasis seen on the study on 09/06/17. There are also pleural and parenchymal changes on the left related to a large left pleural effusion and atelectasis. Opacity on the left is also li david related to left hilar mass with obstruction of the left upper lobe bronchus. Postobstructive ch anges on the left as noted on CTA of the chest on 09/06/17. Median sternotomy wires are again present . Vascular calcifications are seen in a tortuous thoracic aorta. No other interval change. IMPRESSION: Overall stable chest. POS: ASHLI
[2017-09-08 11:49] VITALS: BP 115/64; TEMP 97.7
--- NOTE | 2017-09-08 12:17 | PDOC.PN ---
- Subjective Encounter Start Date: 09/08/17 Encounter Start Time: 12:16 -: non-verbal - Objective Resuscitation Status: Resuscitation Status DNR:Do Not Resuscitate MAR Reviewed: Yes Vital Signs & Weight: Vital Signs (12 hours) Temp Pulse Resp BP BP Pulse Ox 09/08/17 11:48 97.7 F 115/64 09/08/17 08:00 97.2 F L 93 16 94 L 09/08/17 07:42 93 09/08/17 07:36 97.2 F L 92 16 106/58 L 94 L 09/08/17 04:23 98.2 F 92 18 99/60 98 09/08/17 02:14 102 H Weight Weight 151 lb I&O: 09/07/17 09/08/17 09/09/17 06:59 06:59 06:59 Intake Total 100 875 Output Total 200 Balance -100 875 Result Diagrams: 09/07/17 03:50 09/07/17 03:50 Additional Labs: Accuchecks 09/08/17 09/08/17 09/07/17 06:01 00:22 16:46 POC Glucose 167 H 163 H 164 H Phys Exam - Physical Examination Neck: no JVD Respiratory: clear to auscultation bilateral Cardiovascular: RRR, no significant murmur Gastrointestinal: soft, positive bowel sounds Musculoskeletal: edema present pupils fixed, dilated. posturing Dx/Plan - Plan * .
[2017-09-08] MEDS: Dextrose 5 %-0.45 % NaCl 1,000 ML IV SCH (12:21)
--- NOTE | 2017-09-08 13:26 | DIS ---
DATE OF ADMISSION: 09/06/2017 DATE OF DISCHARGE: 09/08/2017 PRIMARY CARE PROVIDER: Brian Kingsley D.O. FINAL DIAGNOSES: Acute respiratory failure with hypoxia, squamous cell carcinoma of the lung with pleural effusions, coronary artery disease, hypertension. DISCHARGE MEDICATIONS: Tentatively his home medicines, amlodipine 5 mg twice a day, aspirin 81 mg a day, levothyroxine 125 mcg a day, losartan 50 mg b.i.d., metoprolol 25 mg in the morning, Protonix 40 mg twice a day, pravastatin 40 mg a day, Flomax 0.4 mg a day, hydralazine 50 mg twice a day, metformin 1000 mg twice a day, Tizanidine 2 mg at bedtime, trazodone 50 mg at bedtime. These were all subject to change by hospice. DISPOSITION: Discharged to home with hospice. STATUS: DNR. DIET: As tolerated. AMBULATION: As tolerated. HOSPITAL COURSE: The patient was admitted to the [facility] through [facility] with worsening shortness of breath. He was found to have acute hypoxic and hypercapnic failure, stage 4 squamous cell carcinoma of the lung, bilateral pleural effusions, possible sepsis. He was seen in consultation by Dr. Bree Gandhi, Oncology; Dr. Iban Caraballo, Pulmonology. On 09/07/2017, he had placement of a right-sided pleural drainage catheter. The patient's laboratory, comprehensive metabolic profile normal except for blood sugar of 161. CBC showed white count 12.3, hemoglobin 9.9, platelet count 249,000. Currently, the patient is very desirous of going home. _on oxygen to keep saturation greater than 90. The patient is remarkably desirous of going home. He wants . He wants to go home and rest. His is at bedside. She is agreeing with his desires. She is agreeing with a DNR status that he desires. Further care will of course be by hospice. [facility] saw him in consultation and is working on getting all the equipment necessary to take care of him at home today. FOLLOWUP: Per hospice. PROGNOSIS: Poor. MTDD
--- NOTE | 2017-09-09 12:11 | PQF ---
[employer] Roll Contour Grinder Crystal Reports Winform ViewerYESI MENDIETA, CLIFTON C [id number] [facility]- B10 [id number] CLINICAL DOCUMENTATION IMPROVEMENT CLARIFICATION FORM: ICD-10 Updated PLEASE DO AN ADDENDUM TO THE PROGRESS NOTE WITH ANY DOCUMENTATION UPDATES OR ADDITIONS AND CARRY THROUGH TO DC SUMMARY. THANK YOU. DATE: 09-08-17 ATTN: DR. WOOD Please exercise your independent, professional judgment in responding to the clarification form. Clinical indicators are provided on the bottom of this form for your review Please check appropriate box(es): [ ] Sepsis due to Pneumonia [x ] SIRS due to non-infectious process (please specify etiology) [ ] with organ dysfunction [ ] without organ dysfunction [ ] Severe sepsis d/t Pneumonia with acute organ dysfunction of Respiratory Failure [ ] Localized infection without sepsis [ x] Other diagnosis __pleural effusion [ ] Unable to determine In addition, please specify: Present on Admission (POA): [ x ] Yes [ ] No [ ] Unable to determine For continuity of documentation, please document condition throughout progress notes and discharge summary. Thank You. CLINICAL INDICATORS - SIGNS / SYMPTOMS / LABS 09-06 ED: SEPSIS ACTIVATION PULSE 109-126 RESP 96% ON NRB THEN BIPAP TRIPOD POSITION UPON ARRIVAL TO ED - SPEAKING IN ONE WORK PHRASES CXR - BILATERAL PLEURAL EFFUSIONS WBC 09-06 12.3 BANDS 20 09-07 13.8 09-06 H&P: POSSIBLE SEPSIS - ELEVATED WHITE COUNT, TACHYCARDIA, RESP FAILURE 09-07 PN (DELANO): POSSIBLE SEPSIS W/ TACHYCARDIA AND RESP FAILURE RISK FACTORS 09-06 H&P: SQUAMOUS CELL CARCINOMA - STAGE 4 09-07 (BRADING): HEALTHCARE-ASSOCIATED PNA - LIKELY POSTOBSTRUCTIVE TREATMENTS: 09-06 ED: VANCOMYCIN IV ; CEFEPIME; ALBUTEROL NEB; OXYGEN NRB TO CPAP 09-06 LABS: BLOOD CULTURES/URINE CULTURES 09-07 OXYGEN 5LNC 09-07 TO 09-08 MAR: MAXIPIME 09-07 MAR: VANCOMYCIN IV 09-07 H&P: BROAD SPECTRUM ABX, CULTURES 09-07 RIGHT SIDED PLEURAL DRAINAGE W/ CATHETER INSERTION UNDER US GUIDANCE - THORACENTESIS THANK YOU, SHABANA (This form is maintained as a part of the permanent medical record) 2014 [employer] All Rights Reserved Shabana Daniel RN, BS [email or web address] NUVANCE [email or web address]
--- NOTE | 2017-09-09 12:26 | PQF ---
YESI MENDIETA, DAYKIN C [id number] [facility]- B10 [id number] CLINICAL DOCUMENTATION IMPROVEMENT CLARIFICATION FORM: ICD-10 Updated PLEASE DO AN ADDENDUM TO THE PROGRESS NOTE WITH ANY DOCUMENTATION UPDATES OR ADDITIONS AND CARRY THROUGH TO DC SUMMARY. THANK YOU. DATE: 09-09-17 ATTN: DR. WOOD Please exercise your independent, professional judgment in responding to the clarification form. Clinical indicators are provided on the bottom of this form for your review Please check appropriate box(s): [ ] Empirically treating Gram Negative Pneumonia [ ] Empirically treating Anaerobic Pneumonia [ ] Obstructive Pneumonia secondary to Lung Cancer [ ] Simple Pneumonia (community acquired - nosocomial) [ ] Pneumonia of unknown etiology [ x ] Other diagnosis _pleural effusion [ ] Unable to determine In addition, please specify: Present on Admission (POA): [ x ] Yes [ ] No [ ] Unable to determine For continuity of documentation, please document condition throughout progress notes and discharge summary. Thank You. CLINICAL INDICATORS - SIGNS / SYMPTOMS / LABS ED: BILATERAL PLEURAL EFFUSIONS; HYPOXIA; PULSE 109-126 RESP 96% ON NRB THEN BIPAP TRIPOD POSITION UPON ARRIVAL TO ED - SPEAKING IN ONE WORD PHRASES CXR - BILATERAL PLEURAL EFFUSIONS - INFECTION CAN'T BE RULED OUT WBC 09-06 12.3 BANDS 20 09-07 13.8 09-06 H&P: BILATERAL PLEURAL EFFUSION AND OBSTRUCTION OF LEFT UPPER LOBE D/T MASS COMPRESSION 09-07 (BRADING): HEALTHCARE-ASSOCIATED PNEUMONIA, POSTOBSTRUCTIVE IN NATURE IN THE LEFT UPPER LOBE RISK FACTORS 09-06 H&P: SQUAMOUS CELL CARCINOMA - STAGE 4 09-07 (BRADING) SQUAMOUS CELL CARCINOMA OF THE LUNG, WIDELY METASTATIC; PLEURAL EFFUSIONS, BILATERAL TREATMENTS: 09-06 ED: VANCOMYCIN IV ; CEFEPIME; ALBUTEROL NEB; OXYGEN NRB TO CPAP 09-06 LABS: BLOOD CULTURES/URINE CULTURES 09-07 OXYGEN 5LNC 09-07 TO 09-08 MAR: MAXIPIME 09-07 MAR: VANCOMYCIN IV 09-07 H&P: BROAD SPECTRUM ABX, CULTURES 09-07 RIGHT SIDED PLEURAL DRAINAGE W/ CATHETER INSERTION UNDER US GUIDANCE - THORACENTESIS THANK YOU, SHABANA (This form is maintained as a part of the permanent medical record) 2014 [employer]. All Rights Reserved Shabana Daniel RN, [email or web address] [email or web address]
== END 2017-09-08 14:59 | disposition hospice, home (50) | DRG 189 ==
LOC: ERS 16:37 → ERHOLD 19:59 → IMCU/EMU 23:05
PROVIDERS: ADMIT Hospitalist; ATTEND Hospitalist
PROC: 0W9930Z Drainage of Right Pleural Cavity with Drainage Device, Percutaneous Approach (ICD-10-PCS; principal; 2017-09-07)
DX: J96.01 Acute respiratory failure with hypoxia (principal); C34.90 Malignant neoplasm of unspecified part of unspecified bronchus or lung; J90 Pleural effusion, not elsewhere classified; R65.10 Systemic inflammatory response syndrome (SIRS) of non-infectious origin without acute organ dysfunction; Z66 Do not resuscitate; I25.10 Atherosclerotic heart disease of native coronary artery without angina pectoris; I10 Essential (primary) hypertension; Z79.82 Long term (current) use of aspirin; Z79.84 Long term (current) use of oral hypoglycemic drugs; Z79.899 Other long term (current) drug therapy; J96.02 Acute respiratory failure with hypercapnia; Z86.73 Personal history of transient ischemic attack (TIA), and cerebral infarction without residual deficits; Z85.828 Personal history of other malignant neoplasm of skin; Z95.1 Presence of aortocoronary bypass graft; Z95.5 Presence of coronary angioplasty implant and graft; Z87.891 Personal history of nicotine dependence; Y95 Nosocomial condition; D64.9 Anemia, unspecified; E11.9 Type 2 diabetes mellitus without complications
CPT/HCPCS: 36415; 36416; 71045; 71275; 80048; 80053; 81003; 82553; 82805; 82945; 83605; 83615; 83986; 84157; 84484; 85025; 85060; 87040; 87070; 87086; 87116; 87205; 87206; 88112; 88305; 89051; 93005; 94640; 94660; 94760; 96361; 96365; 96367; 96375; J0692; J1650; J2001; J2270; J2930; J3370; J7050; J7611; J7620; J7644